=== PATIENT | female | born 1950 | race Caucasian/White ===

== ENCOUNTER 2022-05-17 14:38 | Emergency (ER) | payer MEDICARE, MEDICAID ==
[~2022-05-17] VITALS: Ht 162.6 cm; Wt 117.3 kg
[2022-05-17] VITALS (7 sets, daily range): BP systolic 151–173; BP diastolic 70–90
[2022-05-17] MEDS ORDERED: GABAPENTIN300 M2 (15:16)
[2022-05-17] MEDS ORDERED: NEXIUM2.5 MG (15:16)
[2022-05-17] MEDS ORDERED: JANUMET1 TA1 PO (15:17)
[2022-05-17] MEDS ORDERED: MONTELUKAST SOD10 MG PO (15:17)
[2022-05-17] MEDS ORDERED: NORVASC5 M1 PO (15:18)
[2022-05-17] MEDS ORDERED: SONATA10 MG PO (15:19)
[2022-05-17] MEDS ORDERED: REPAGLINIDE2 MG PO (15:20)
[2022-05-17] MEDS ORDERED: ZESTRIL10 M1 PO (15:21)
[2022-05-17] MEDS ORDERED: REPATHA140 MG/ML IM (15:22)
[2022-05-17] MEDS ORDERED: DULERA1 AE1 IN (15:23)
[2022-05-17] MEDS ORDERED: IPRATROPIU0.5 MG/3 M IN (15:24)
[2022-05-17] MEDS ORDERED: VENTOLIN HFA IN (15:24)
[2022-05-17] MEDS ORDERED: PERCOCET 5/325M1 TAB PO (15:58)
[2022-05-17] MEDS ORDERED: NAPROXEN SOD500 MG PO (15:58)
== END 2022-05-17 16:39 | disposition home or self-care (01) ==
LOC: ED 14:38
DX: S83.92XA Sprain of unspecified site of left knee, initial encounter (principal); I10 Essential (primary) hypertension; E11.9 Type 2 diabetes mellitus without complications; X50.0XXA Overexertion from strenuous movement or load, initial encounter; Y93.89 Activity, other specified